=== PATIENT | female | born 1965 | race Caucasian/White ===

== ENCOUNTER 2022-07-27 09:08 | Emergency (ER) | payer OTHER ==
[~2022-07-27] VITALS: Ht 154.9 cm; Wt 79.8 kg
[2022-07-27 09:15] VITALS: BP 132/77
--- NOTE | 2022-07-27 09:36 | NUR ---
BIB FAMILY C/O DIZZINESS, NAUSEA X TODAY. PMH: HTN, THYROID
--- NOTE | 2022-07-27 10:10 | NUR ---
PT AMB TO BED 7.
[2022-07-27] MEDS ORDERED: diphenhydrAMINE 50 MG/ML VIAL IVP ONE (10:30)
[2022-07-27] MEDS ORDERED: ONDANSETRON 4 MG/2 ML VIAL IVP ONE (10:30)
[2022-07-27] MEDS ORDERED: NACL 0.9% 1,000 ML IV ONE (10:30)
--- NOTE | 2022-07-27 10:54 | NUR ---
DR. REYES EVALUATING PATIENT AT BEDSIDE.
[2022-07-27 10:56] LABS: BASOPHILS % (AUTO) 0.2 % (0.0-2.0); EOSINOPHILS % (AUTO) 0.2 % (0.0-4.0); HEMATOCRIT 38.4 % (36-48); HEMOGLOBIN 12.5 g/dL (12.0-16.0); LYMPHOCYTES # (AUTO) 0.8 K/uL (2.5-16.5); LYMPHOCYTES % (AUTO) 9.9 % (20.5-51.1); MEAN CORPUSCULAR HEMOGLOBIN 29 pg (27-31); MEAN CORPUSCULAR HGB CONC 33 g/dL (33-37); MEAN CORPUSCULAR VOLUME 90.6 fL (80-94); MONOCYTES # (AUTO) 0.6 K/uL (0.8-1.0); MONOCYTES % (AUTO) 7.3 % (1.7-9.3); NEUTROPHILS # (AUTO) 6.9 K/uL (1.8-7.7); NEUTROPHILS % (AUTO) 82.4 % (42.2-75.2); PLATELET COUNT (AUTO) 251 K/uL (140-450); RED BLOOD CELL COUNT(AUTO) 4.24 MIL/uL (4.20-5.40); RED CELL DISTRIBUTION WIDTH 13.2 % (11.6-13.7); WHITE BLOOD COUNT (AUTO) 8.4 K/uL (4.8-10.8)
[2022-07-27] MEDS ORDERED: KETOROLAC 30 MG/ML VIAL IVP ONE (11:00)
[2022-07-27 11:16] LABS: ALBUMIN 3.5 g/dL (3.4-5.0); ANION GAP 8.1 (8-16); ASPARTATE AMINOTRANSFERASE 19 U/L (15-37); CARBON DIOXIDE 28.4 mmol/L (21-32); CHLORIDE 105 mmol/L (98-107); CREATININE 0.7 mg/dL (0.6-1.3); GFR ARICAN-AMERICAN 110 mL/min (>90); GLUCOSE 111 mg/dL (74-106); POTASSIUM 4.5 mmol/L (3.5-5.1); SODIUM SERUM 137 mmol/L (136-145); TOTAL BILIRUBIN 0.3 mg/dL (0.0-1.0); UREA NITROGEN, BLOOD 23 mg/dL (7-18)
[2022-07-27] MEDS ORDERED: IBUP-2213 PO (11:47)
[2022-07-27] MEDS ORDERED: MECL-303 PO (11:47)
[2022-07-27] MEDS ORDERED: ONDA-188 PO (11:48)
[2022-07-27 12:06] VITALS: BP 133/68
--- NOTE | 2022-07-27 12:06 | NUR ---
Patient discharged with v/s stable. Written and verbal after care instructions given. Patient alert, oriented and verbalized understanding of instructions. Ambulatory with steady gait. All questions addressed prior to discharge. ID band removed. Patient advised to follow up with PMD. Rx of IBUPROFEN, ANTIVERT AND ZOFRAN given. Opportunity to ask questions provided and answered. WORK NOTE HANDED TO PATIENT.
--- NOTE | 2022-07-27 12:40 | NUR ---
The patient's care was reviewed and supervised by Megan Garcia, RN, RN.
== END 2022-07-27 12:06 | disposition home or self-care (01) ==
LOC: MED 09:08
DX: R42 Dizziness and giddiness (principal); R11.0 Nausea; R51.9 Headache, unspecified; I10 Essential (primary) hypertension; E07.9 Disorder of thyroid, unspecified; Z79.899 Other long term (current) drug therapy
CPT/HCPCS: 36415; 80053; 84484; 85025; 96361; 96374; 96375; 99284; J1200; J1885; J2405; J7030

== ENCOUNTER 2023-10-18 09:09 | Emergency (ER) | payer OTHER ==
[~2023-10-18] VITALS: Ht 152.4 cm; Wt 74.8 kg
[~2023-10-18 09:09] MED LIST: IBUP-2213 PO; MECL-303 PO; ONDA-188 PO
[2023-10-18 09:16] VITALS: BP 122/82; PULSE 81; RESP 18; TEMP 96.9; O2SAT 100
[2023-10-18 12:42] LABS: APPEARANCE,URINE CLEAR (CLEAR); BILIRUBIN,URINE NEGATIVE (NEGATIVE); BLOOD, URINE 1+ (NEGATIVE); COLOR,URINE YELLOW (YELLOW); LEUKOCYTE ESTERASE ,URINE NEGATIVE (NEGATIVE); NITRITE, URINE NEGATIVE (NEGATIVE); PROTEIN,URINE NEGATIVE (NEGATIVE); UGLUCOSE NEGATIVE (NEGATIVE); UROBILINOGEN,URINE 0.2 EU/dL (0.2 - 1)
[2023-10-18 12:53] LABS: RBC,URINE 0-5 /HPF (0-5); WBC,URINE 0-5 /HPF (0-5)
[2023-10-18 12:54] LABS: BACTERIA,URINE FEW /HPF (None Seen); SQUAMOUS EPITHELIAL CELL,UR 0-3 (FEW) /LPF (0-3 (FEW))
[2023-10-18] MEDS ORDERED: FLUC150T64 PO (13:53)
[2023-10-18 15:04] VITALS: BP 133/64; PULSE 74; RESP 20; TEMP 97.1; O2SAT 100
== END 2023-10-18 15:05 | disposition home or self-care (01) ==
LOC: MED 09:09
DX: B37.31 Acute candidiasis of vulva and vagina (principal); E03.9 Hypothyroidism, unspecified; I10 Essential (primary) hypertension; Z79.899 Other long term (current) drug therapy
CPT/HCPCS: 81001; 99283

== ENCOUNTER 2023-10-27 09:22 | Emergency (ER) | payer OTHER ==
[~2023-10-27] VITALS: Ht 154.9 cm; Wt 74.4 kg
[~2023-10-27 09:22] MED LIST changes: +FLUC150T64 PO
[2023-10-27 09:32] VITALS: BP 139/88; PULSE 86; RESP 18; TEMP 98.1; O2SAT 99
[2023-10-27] MEDS ORDERED: [UNRECOGNIZED DRUG - CODE] TP (10:32)
[2023-10-27] MEDS ORDERED: CETI10TA81 PO (10:32)
[2023-10-27 10:39] VITALS: BP 130/88; PULSE 78; RESP 16; TEMP 98.2; O2SAT 100
== END 2023-10-27 10:39 | disposition home or self-care (01) ==
LOC: MED 09:22
DX: L30.9 Dermatitis, unspecified (principal); L85.3 Xerosis cutis; I10 Essential (primary) hypertension; E03.9 Hypothyroidism, unspecified; Z90.49 Acquired absence of other specified parts of digestive tract; Z79.899 Other long term (current) drug therapy
CPT/HCPCS: 99282